=== PATIENT | female | born 1975 | race Caucasian/White ===

== ENCOUNTER → 2016-07-03 | Outpatient (CLI) | payer BC ==
[~2016-07-03] MED LIST: KLONOPIN 0.5MG0.5 MG PO; NORCO 325 MG-51 TAB PO; PROZAC 20MG20 MG PO; ZOFRAN ODT4 MG PO
== END ==
LOC: BHSO 14:44
DX: F33.42 Major depressive disorder, recurrent, in full remission (principal)

== ENCOUNTER → 2016-12-28 | Outpatient (CLI) | payer BC | LOC: BHSO 10:12 | DX: F33.41 Major depressive disorder, recurrent, in partial remission (principal) ==

== ENCOUNTER → 2017-02-05 | Outpatient (CLI) | payer BC | LOC: BHSO 15:04 | DX: F33.41 Major depressive disorder, recurrent, in partial remission (principal) ==

== ENCOUNTER → 2017-05-07 | Outpatient (CLI) | payer BC | LOC: BHSO 14:59 | DX: F33.41 Major depressive disorder, recurrent, in partial remission (principal) ==

== ENCOUNTER 2017-07-18 13:46 | Emergency (ER) | payer BC ==
[~2017-07-18] VITALS: Ht 177.8 cm; Wt 81.8 kg
[2017-07-18 14:00] VITALS: TEMP 98.6
[2017-07-18 14:53] LABS: BASO # 0.1 (0.0-0.2); BASO % 0.9 % (0.0-2.0); EOS # 0.1 (0.0-0.7); GRAN # 4.1 (1.4-6.5); GRAN % 62.8 % (42.2-75.2); HEMATOCRIT 38.2 % (37.0-47.0); HEMOGLOBIN 13.3 g/dl (12.5-16.0); LYMPH # 1.7 (1.2-3.4); LYMPH % 26.4 % (20.0-51.0); MEAN CELL VOLUME 94 fl (80.0-100.0); MEAN CORPUSCULAR HEMOGLOBIN 33 pg (27.0-31.0); MEAN CORPUSCULAR HGB CONC 35 g/dl (33.0-37.0); MEAN PLATELET VOLUME 9.4 fl (7.4-10.4); MONO # 0.5 (0.1-0.6); MONO % 7.6 % (1.7-9.3); PLATELET COUNT 319 K/mm3 (130-400); RED BLOOD COUNT 4.06 M/mm3 (4.10-5.30); REDCELL DISTRIBUTION WIDTH-CV 11.9 % (11.5-14.5)
[2017-07-18 15:01] LABS: ALANINE AMINOTRANSFERASE 32 U/L (9-52); ALBUMIN 4.8 gm/dL (3.5-5.0); ALKALINE PHOSPHATASE 54 U/L (50-136); ANION GAP 10 mmol/L (7-16); AST,SGOT 28 U/L (15-37); BILIRUBIN,TOTAL 0.3 mg/dL (0.0-1.0); BLOOD UREA NITROGEN 10 mg/dL (7-17); CALCIUM 9.7 mg/dL (8.4-10.2); CARBON DIOXIDE 28 mmol/L (22-30); CHLORIDE 100 mmol/L (98-107); CREATININE, serum 0.95 mg/dL (0.52-1.25); GLUCOSE 94 mg/dL (74-106); LIPASE 188 U/L (23-300); POTASSIUM 4.2 mmol/L (3.4-5.0); SODIUM 137 mmol/L (137-145); TOTAL PROTEIN 7.9 gm/dL (6.4-8.2)
[2017-07-18 15:08] LABS: C-REACTIVE PROTEIN < 0.5 mg/dL (0.0-0.9)
[2017-07-18 15:46] LABS: COLLECTION METHOD CLEAN CATCH
[2017-07-18 15:55] LABS: PH 6 (5-8); SQUAMOUS EPITHELIAL 0-2 /hpf; URINE APPEARANCE Clear; URINE BACTERIA None Seen /hpf; URINE BILIRUBIN Negative (NEGATIVE); URINE BLOOD 2+ (NEGATIVE); URINE COLOR Yellow; URINE GLUCOSE Negative (NEGATIVE); URINE KETONE Negative (NEGATIVE); URINE LEUKOCYTE ESTERASE Negative (NEGATIVE); URINE NITRATE Negative (NEGATIVE); URINE PROTEIN(semi-quant) Negative (NEGATIVE); URINE RBC 0-2 /hpf; URINE UROBILINOGEN Negative (NEGATIVE)
[2017-07-18 20:30] VITALS: BP 128/78; PULSE 74
== END 2017-07-18 20:37 | disposition home or self-care (01) ==
LOC: COL.ER 13:46
PROVIDERS: Family Medicine
DX: K59.00 Constipation, unspecified (principal); Z87.42 Personal history of other diseases of the female genital tract
CPT/HCPCS: J1170; J1885; J2405; J7030; J7050; Q9967

== ENCOUNTER → 2018-01-10 | Outpatient (CLI) | payer BC | LOC: BHSO 09:24 | DX: F90.0 Attention-deficit hyperactivity disorder, predominantly inattentive type (principal) | CPT/HCPCS: G0463 ==

== ENCOUNTER → 2018-02-06 | Outpatient (CLI) | payer BC | LOC: BHSO 15:55 | DX: F90.0 Attention-deficit hyperactivity disorder, predominantly inattentive type (principal) | CPT/HCPCS: G0463 ==

== ENCOUNTER → 2018-04-04 | Outpatient (CLI) | payer BC | LOC: COL.RAD 12:32 | DX: R35.0 Frequency of micturition (principal); R10.2 Pelvic and perineal pain ==

== ENCOUNTER → 2018-08-06 | Outpatient (CLI) | payer BC ==
[~2018-08-06] MED LIST changes: +ADDERALL XR15 MG PO; +LORTAB 5/500 501 TAB PO
== END ==
LOC: BHSO 15:14
DX: F90.0 Attention-deficit hyperactivity disorder, predominantly inattentive type (principal)
CPT/HCPCS: G0463

== ENCOUNTER → 2018-09-16 | Outpatient (CLI) | payer BC | LOC: BHSO 15:17 | DX: F33.41 Major depressive disorder, recurrent, in partial remission (principal) | CPT/HCPCS: G0463 ==

== ENCOUNTER → 2018-10-29 | Outpatient (CLI) | payer BC | LOC: COL.RAD 14:56 | DX: E06.3 Autoimmune thyroiditis (principal) ==

== ENCOUNTER → 2018-12-15 | Outpatient (CLI) | payer BC | LOC: MC.RAD 09:06 | DX: Z12.31 Encounter for screening mammogram for malignant neoplasm of breast (principal) ==

== ENCOUNTER → 2018-12-17 | Outpatient (CLI) | payer BC | LOC: BHSO 14:14 | DX: F33.42 Major depressive disorder, recurrent, in full remission (principal) | CPT/HCPCS: G0463 ==

== ENCOUNTER → 2019-03-25 | Outpatient (CLI) | payer BC | LOC: BHSO 07:49 | DX: F41.1 Generalized anxiety disorder (principal) | CPT/HCPCS: G0463 ==

== ENCOUNTER 2019-05-15 00:22 | Emergency (ER) | payer BC ==
[~2019-05-15] VITALS: Ht 177.8 cm; Wt 68.2 kg
[2019-05-15 00:43] LABS: COLLECTION METHOD CLEAN CATCH
[2019-05-15] MEDS ORDERED: WELLBUTRIN XL150 MG PO (00:43)
[2019-05-15] MEDS ORDERED: ATIVAN 0.50.5 MG/TAB PO (00:43)
[2019-05-15] MEDS ORDERED: DESYREL 100MG100 MG PO (00:43)
[2019-05-15] MEDS ORDERED: TIROSINT150 MC1 PO (00:44)
[2019-05-15 00:50] LABS: PH 6 (5-8); SQUAMOUS EPITHELIAL None Seen /hpf; URINE APPEARANCE Clear; URINE BACTERIA Rare /hpf; URINE BILIRUBIN Negative (NEGATIVE); URINE BLOOD Negative (NEGATIVE); URINE COLOR Straw; URINE GLUCOSE Negative (NEGATIVE); URINE KETONE Negative (NEGATIVE); URINE LEUKOCYTE ESTERASE Negative (NEGATIVE); URINE NITRATE Negative (NEGATIVE); URINE PROTEIN(semi-quant) Negative (NEGATIVE); URINE RBC None Seen /hpf; URINE UROBILINOGEN Negative (NEGATIVE)
[2019-05-15 00:56] LABS: BASO # 0.1 (0.0-0.2); BASO % 0.6 % (0.0-2.0); EOS # 0.2 (0.0-0.7); EOS % 1.9 % (0-4.0); GRAN # 5.4 (1.4-6.5); GRAN % 61.2 % (42.2-75.2); HEMOGLOBIN 12.1 g/dl (12.5-16.0); LYMPH # 2.5 (1.2-3.4); MEAN CELL VOLUME 94 fl (80.0-100.0); MEAN CORPUSCULAR HEMOGLOBIN 31 pg (27.0-31.0); MEAN CORPUSCULAR HGB CONC 33 g/dl (33.0-37.0); MEAN PLATELET VOLUME 9.3 fl (7.4-10.4); MONO # 0.7 (0.1-0.6); PLATELET COUNT 234 K/mm3 (130-400); RED BLOOD COUNT 3.87 M/mm3 (4.10-5.30); REDCELL DISTRIBUTION WIDTH-CV 11.9 % (11.5-14.5)
[2019-05-15 00:57] LABS: HEMATOCRIT 36.2 % (37.0-47.0)
[2019-05-15 00:58] LABS: TRICYCLIC ANTIDEPRESS URINE NEGATIVE
[2019-05-15 01:05] LABS: ACETAMINOPHEN < 10 ug/mL (10-30); ALANINE AMINOTRANSFERASE 13 U/L (9-52); ALBUMIN 4.3 gm/dL (3.5-5.0); ALCOHOL(ethanol),MEDICAL 201 mg/dL; ALKALINE PHOSPHATASE 41 U/L (50-136); ANION GAP 10 mmol/L (7-16); AST,SGOT 22 U/L (15-37); BILIRUBIN,TOTAL 0.1 mg/dL (0.0-1.0); BLOOD UREA NITROGEN 18 mg/dL (7-17); CALCIUM 8.7 mg/dL (8.4-10.2); CARBON DIOXIDE 27 mmol/L (22-30); CHLORIDE 99 mmol/L (98-107); CREATININE, serum 0.88 (0.52-1.25); GLUCOSE 92 mg/dL (74-106); POTASSIUM 3.8 mmol/L (3.4-5.0); SALICYLATE < 1.0 mg/dL; SODIUM 136 mmol/L (137-145)
[2019-05-15 05:43] VITALS: TEMP 98.4
[2019-05-15 18:21] VITALS: BP 116/78; PULSE 78
== END 2019-05-15 18:21 ==
LOC: COL.ER 00:22
PROVIDERS: Emergency Medicine
DX: R45.851 Suicidal ideations (principal); F32.9 Major depressive disorder, single episode, unspecified; F10.129 Alcohol abuse with intoxication, unspecified; E03.9 Hypothyroidism, unspecified; Y90.5 Blood alcohol level of 100-119 mg/100 ml
CPT/HCPCS: J2405; J3010; J7030

== ENCOUNTER → 2019-06-08 | Outpatient (CLI) | payer BC ==
[~2019-06-08] MED LIST changes: +ATIVAN 0.50.5 MG/TAB PO; +DESYREL 100MG100 MG PO; +TIROSINT150 MC1 PO; +WELLBUTRIN XL150 MG PO
== END ==
LOC: BHSO 16:01
DX: F33.41 Major depressive disorder, recurrent, in partial remission (principal)
CPT/HCPCS: G0463

== ENCOUNTER → 2019-07-01 | Outpatient (CLI) | payer BC | LOC: BHSO 14:55 | DX: F42.8 Other obsessive-compulsive disorder (principal) ==

== ENCOUNTER → 2019-07-08 | Outpatient (CLI) | payer BC | LOC: BHSO 15:01 | DX: F42.8 Other obsessive-compulsive disorder (principal) ==

== ENCOUNTER → 2019-07-10 | Outpatient (CLI) | payer BC | LOC: BHSO 15:07 | DX: F33.42 Major depressive disorder, recurrent, in full remission (principal) | CPT/HCPCS: G0463 ==

== ENCOUNTER → 2019-07-29 | Outpatient (CLI) | payer BC | LOC: BHSO 14:58 | DX: F42.8 Other obsessive-compulsive disorder (principal) ==

== ENCOUNTER → 2019-08-12 | Outpatient (CLI) | payer BC | LOC: BHSO 15:03 | DX: F42.8 Other obsessive-compulsive disorder (principal) ==

== ENCOUNTER → 2019-10-26 | Outpatient (CLI) | payer BC | LOC: BHSO 13:01 | DX: F43.10 Post-traumatic stress disorder, unspecified (principal) ==

== ENCOUNTER → 2019-11-10 | Outpatient (CLI) | payer BC | LOC: BHSO 12:59 | DX: F42.8 Other obsessive-compulsive disorder (principal) ==

== ENCOUNTER → 2019-11-24 | Outpatient (CLI) | payer BC | LOC: BHSO 13:00 | DX: F42.8 Other obsessive-compulsive disorder (principal) ==

== ENCOUNTER 2020-06-01 08:24 | Observation (INO) | payer BC ==
[~2020-06-01] VITALS: Ht 177.8 cm; Wt 93.9 kg
[2020-06-01 09:18] LABS: BASO # 0.1 (0.0-0.2); BASO % 0.6 % (0.0-2.0); EOS # 0.1 (0.0-0.7); EOS % 1.5 % (0-4.0); GRAN # 6.9 (1.4-6.5); GRAN % 73.7 % (42.2-75.2); HEMATOCRIT 39.3 % (37.0-47.0); HEMOGLOBIN 13.5 g/dl (12.5-16.0); LYMPH # 1.6 (1.2-3.4); LYMPH % 16.5 % (20.0-51.0); MEAN CELL VOLUME 95 fl (80.0-100.0); MEAN CORPUSCULAR HEMOGLOBIN 33 pg (27.0-31.0); MEAN CORPUSCULAR HGB CONC 34 g/dl (33.0-37.0); MEAN PLATELET VOLUME 9.5 fl (7.4-10.4); MONO # 0.7 (0.1-0.6); MONO % 7.5 % (1.7-9.3); PLATELET COUNT 283 K/mm3 (130-400); RED BLOOD COUNT 4.13 M/mm3 (4.10-5.30); REDCELL DISTRIBUTION WIDTH-CV 12.2 % (11.5-14.5)
[2020-06-01 09:24] LABS: ALANINE AMINOTRANSFERASE 22 U/L (4-34); ALBUMIN 4.3 gm/dL (3.5-5.0); ALKALINE PHOSPHATASE 42 U/L (50-136); ANION GAP 7 mmol/L (7-16); AST,SGOT 28 U/L (15-37); BILIRUBIN,TOTAL 0.2 mg/dL (0.0-1.0); BLOOD UREA NITROGEN 17 mg/dL (7-17); CALCIUM 10.4 mg/dL (8.4-10.2); CARBON DIOXIDE 25 mmol/L (22-30); CHLORIDE 104 mmol/L (98-107); CREATININE, serum 0.93 (0.52-1.25); GLUCOSE 92 mg/dL (74-106); LIPASE 179 U/L (23-300); POTASSIUM 4.7 mmol/L (3.4-5.0); SODIUM 136 mmol/L (137-145); TOTAL PROTEIN 7.3 gm/dL (6.4-8.2)
[2020-06-01 09:44] LABS: TROPONIN-I < 0.012 ng/mL (0.000-0.035)
[2020-06-01 13:11] LABS: INR 0.9 (0.8-3.0); PARTIAL THROMBOPLASTIN TIME 29.5 SECONDS (26.0-37.0); PROTHROMBIN TIME 10.2 SECONDS (9.7-12.8)
[2020-06-01 16:38] VITALS: BP 147/86; PULSE 63; TEMP 98
[2020-06-01 17:45] VITALS: BP 129/84; PULSE 68; TEMP 98.3
--- NOTE | 2020-06-01 18:31 | NUR ---
Pt arrived to floor this afternoon. Resting inbed. PRN anxiety and pain medications given for chest pain on yawn and deep breath. Resting in bed between disturbances, will give bedside shift report to nightshift nurse who will resume care.
[2020-06-01 19:37] VITALS: BP 122/70; PULSE 77; TEMP 98.8
--- NOTE | 2020-06-01 21:00 | NUR ---
PT ASKING FOR PAIN MEDS. EXPLAINED IT WAS TOO EARLY. OFFERED TYLENOL WHICH SHE DID AGREE TO. REPORTS LEFT CHEST WALL PAIN WITH COUGH AND DEEP BREATH. SL TO LEFT AC. UP INDEPENDENTLY IN ROOM.
--- NOTE | 2020-06-01 23:10 | NUR ---
SPOKE WITH DR RAYMOND REGARDING PTS PAIN. ADDED TRAMADOL 50MG PO BID PRN. MEDICATED AT THIS TIME WITH NORCO AND TRAMADOL FOR LEFT CHEST PAIN. REPORTS HER CHEST STILL FEELS "TIGHT" LIKE UPON ADMISSION.
[2020-06-02 00:15] VITALS: BP 114/63; PULSE 64; TEMP 98.6
[2020-06-02 03:21] VITALS: BP 106/72; PULSE 69; TEMP 98.8
--- NOTE | 2020-06-02 03:35 | NUR ---
Medicated with [place] 5/325mg 1 tab at this time for persistent left chest pain.
--- NOTE | 2020-06-02 07:16 | NUR ---
Lying in bed with eyes open. Rates pain in left chest 8/10, describes as a sharp ache that is constant. Sometimes the pain radiates into back. Provided pain medication as prescribed. Patient denies additional needs.
--- NOTE | 2020-06-02 08:17 | NUR ---
Continues to rate pain in left chest 8/10 and would like second pain pill. Administer as prescribed. Provided Kpad for patient to apply to upper back and shoulders. Patient denies additional needs.
[2020-06-02 08:40] VITALS: BP 109/70; PULSE 72; TEMP 98
--- NOTE | 2020-06-02 10:32 | NUR ---
Patient's mother, Sarah, calls for update on patient. Sarah provides four digit code to get information. Provided update. Sarah requests call from provider. Explain that I would provide the provider her number.
--- NOTE | 2020-06-02 10:53 | NUR ---
Provided Dr. Fry with patient's mother, Aminata, phone number and explain that she is requesting a call from the doctor.
--- NOTE | 2020-06-02 11:51 | NUR ---
Rating pain in left chest 8/10, requests pain medication. Administer pain medication as prescribed. Patient says that she feels like it is getting harder to breathe. Explain that we will update the provider.
[2020-06-02 12:27] VITALS: BP 121/65; PULSE 72; TEMP 98.4
--- NOTE | 2020-06-02 12:39 | NUR ---
Updated Dr. Fry on patient concerns of pain medications not effectively working and feeling as though her breathing is getting worse.
--- NOTE | 2020-06-02 13:20 | NUR ---
Discuss with the patient Ativan and Tramadol. Administer at this time. Explain that respiratory therapy will come in to show her how to use the incentive spirometer and that she should perform IS every hour while awake at least 10 times per hour. Patient verbalizes understanding. Denies additional needs at this time.
--- NOTE | 2020-06-02 14:24 | NUR ---
Sitting up in bed watching TV. Rates pain 6/10. Says that she can tell an improvement in the pain. Denies needs at this time.
[2020-06-02] MEDS ORDERED: ELIQUIS 5MG PO ×2 (15:55→15:57)
[2020-06-02] MEDS ORDERED: ULTRAM 50MG TAB50 MG PO (15:59)
[2020-06-02] MEDS ORDERED: ATIVAN 0.50.5 MG/TAB PO (16:02)
[2020-06-02 16:06] VITALS: BP 114/68; PULSE 69; TEMP 98.1
--- NOTE | 2020-06-02 16:34 | NUR ---
Review all discharge instructions with the patient. Denies questions and signs discharge paperwork. Discharge packet provided to the patient. Patient's spouse will tack picker meds from the pharmacy and will be here around 1800 to tack picker patient. Patient denies additional needs at this time.
--- NOTE | 2020-06-02 16:39 | NUR ---
Provided patient home medication, Tirosint, back to the patient and she signed paperwork.
[2020-06-02 16:52] LABS: COAG INR 1.4 (0.9-1.2)
--- NOTE | 2020-06-02 18:00 | NUR ---
Patient pushes call light and says that her ride is at the ER to pick her up. Patient assisted out to POV with all belongings by DIMITRY Vallecillo.
[2020-06-02 19:10] LABS: FACTOR V LEIDEN MUTATION B Negative (Negative); PT G20210A MUTATION B Negative (Negative)
[2020-06-03 09:07] LABS: ANTI-THROMBIN III 115 % (72-128)
[2020-06-03 09:08] LABS: PROTEIN C ACTIVITY 143 % (70-150)
== END 2020-06-02 18:00 | disposition home or self-care (01) ==
LOC: COL.ER 08:24 → SURG 11:45
PROVIDERS: Emergency Medicine; Student in an Organized Health Care Education/Training Program; ADMIT Hospitalist
DX: I26.99 Other pulmonary embolism without acute cor pulmonale (principal); Z79.01 Long term (current) use of anticoagulants; E06.3 Autoimmune thyroiditis; F32.9 Major depressive disorder, single episode, unspecified; F41.9 Anxiety disorder, unspecified; F17.210 Nicotine dependence, cigarettes, uncomplicated; Z88.7 Allergy status to serum and vaccine; Z88.8 Allergy status to other drugs, medicaments and biological substances; Z20.828 Contact with and (suspected) exposure to other viral communicable diseases
CPT/HCPCS: 99222-AI; 99239; G0378; J2060; J2270; J3010; Q9967

== ENCOUNTER 2021-02-10 00:47 | Emergency (ER) | payer BC ==
[~2021-02-10] VITALS: Ht 177.8 cm; Wt 79.5 kg
[~2021-02-10 00:47] MED LIST changes: +ELIQUIS 5MG PO; +ULTRAM 50MG TAB50 MG PO
[2021-02-10 01:16] VITALS: TEMP 98.8
[2021-02-10 02:30] VITALS: BP 114/78; PULSE 64
[2021-02-10] MEDS ORDERED: AMOXICILLIN 8751 TAB PO (02:35)
== END 2021-02-10 02:30 | disposition home or self-care (01) ==
LOC: COL.ER 00:47
DX: S00.87XA Other superficial bite of other part of head, initial encounter (principal); W54.0XXA Bitten by dog, initial encounter